=== PATIENT | female | born 1970 | race Caucasian/White ===

== ENCOUNTER 2021-07-18 21:58 | Inpatient (IN) | payer OTHER ==
[2021-07-18] MEDS ORDERED: ACETAMINOPHEN 500 MG TABLET (FP) PO ONE (22:44)
[2021-07-18] MEDS ORDERED: ASPIRIN 81 MG CHEWABLE TABLETS PO ONE (22:44)
[2021-07-18] MEDS ORDERED: ACETAMINOPHEN 500 MG TABLET (FP) ONE (23:09)
[2021-07-18] MEDS ORDERED: ASPIRIN 81 MG CHEWABLE TABLETS ONE (23:11)
[2021-07-18 23:49] LABS: HEMATOCRIT 37.5 % (32.4-45.2); HEMOGLOBIN 12.4 GM/dL (10.7-15.3); MCHC 33.1 g/dl (32.0-36.0); MEAN CELL VOLUME 84.6 fl (80-96); MEAN PLT VOLUME 8.5 fl (7.5-11.1); NEUT % 57.6 % (42.8-82.8); PLATELET COUNT 218 10^3/uL (134-434); RBC 4.44 M/mm3 (3.60-5.2); RDW 14.2 % (11.6-15.6)
[2021-07-18 23:50] LABS: BASO % 0.6 % (0-2.0); LYMPH % 27.5 % (8-40); MONO % 5.3 % (3.8-10.2)
[2021-07-19 00:27] LABS: BLOOD UREA NITROGEN 17.9 mg/dL (7-18); CALCIUM 8.2 mg/dL (8.5-10.1); CHLORIDE 109 mmol/L (98-107); CO2 26 mmol/L (21-32); CREATININE 0.9 mg/dL (0.55-1.3); GLUCOSE,RANDOM 105 mg/dL (74-106); SODIUM 139 mmol/L (136-145); TOT PROT 6.4 g/dl (6.4-8.2)
[2021-07-19 00:28] LABS: ALBUMIN 2.8 g/dl (3.4-5.0); ALK PHOS 87 U/L (45-117); BILIRUBIN,TOTAL 0.4 mg/dL (0.2-1); SGOT/AST 15 U/L (15-37); SGPT/ALT 17 U/L (13-61)
[2021-07-19 00:29] LABS: ANION GAP 4 MMOL/L (8-16)
[2021-07-19] MEDS ORDERED: ENOXAPARIN NA (PORCINE) 100 MG/1 ML DISP.SYRIN SQ ONE ×2 (02:04→02:06)
[2021-07-19 10:17] LABS: PH,URINE 5.5 (5.0-8.0); URINE APPEARANCE CLEAR; URINE BILIRUBIN NEGATIVE (NEGATIVE); URINE COLOR YELLOW; URINE GLUCOSE (UA) NEGATIVE (NEGATIVE); URINE KETONE NEGATIVE (NEGATIVE); URINE LEUK ESTERASE NEGATIVE (NEGATIVE); URINE NITRITE NEGATIVE (NEGATIVE); URINE PROTEIN NEGATIVE (NEGATIVE); URINE UROBILINOGEN 0.2 mg/dL (0.2-1.0)
[2021-07-19 10:19] LABS: BASO % 0.6 % (0-2.0); EOS % 14.8 % (0-4.5); HEMOGLOBIN 13.4 GM/dL (10.7-15.3); LYMPH % 24.1 % (8-40); MCHC 33.4 g/dl (32.0-36.0); MEAN CELL VOLUME 83.7 fl (80-96); MEAN PLT VOLUME 8.3 fl (7.5-11.1); MONO % 5.4 % (3.8-10.2); NEUT % 55.1 % (42.8-82.8); PLATELET COUNT 245 10^3/uL (134-434); RBC 4.78 M/mm3 (3.60-5.2); RDW 14.2 % (11.6-15.6); WHITE BLOOD COUNT 8.4 K/mm3 (4.0-10.0)
[2021-07-19 10:54] LABS: BLOOD UREA NITROGEN 13.3 mg/dL (7-18)
[2021-07-19 10:55] LABS: ALBUMIN 3.2 g/dl (3.4-5.0); CALCIUM 8.8 mg/dL (8.5-10.1)
[2021-07-19 10:56] LABS: MAGNESIUM 1.8 mg/dL (1.8-2.4)
[2021-07-19 10:58] LABS: PHOSPHOROUS 3.1 mg/dL (2.5-4.9)
[2021-07-19 10:59] LABS: CREATININE 0.8 mg/dL (0.55-1.3)
[2021-07-19 11:01] LABS: BILIRUBIN,TOTAL 0.6 mg/dL (0.2-1)
[2021-07-19] MEDS: ENOXAPARIN NA (PORCINE) 100 MG/1 ML DISP.SYRIN SQ SCH ×2 (12:51→21:19)
[2021-07-19 16:58] VITALS: BMI 39.4
[2021-07-19] MEDS ORDERED: ACETAMINOPHEN 325 MG TABLET (FP) PO PRN (20:34)
[2021-07-20 08:23] LABS: BASO % 0.7 % (0-2.0); EOS % 15.9 % (0-4.5); HEMATOCRIT 39.1 % (32.4-45.2); HEMOGLOBIN 13.1 GM/dL (10.7-15.3); LYMPH % 32.8 % (8-40); MCH 28.2 pg (25.7-33.7); MCHC 33.5 g/dl (32.0-36.0); MEAN CELL VOLUME 84.2 fl (80-96); MONO % 7.7 % (3.8-10.2); NEUT % 42.9 % (42.8-82.8); PLATELET COUNT 230 10^3/uL (134-434); RBC 4.64 M/mm3 (3.60-5.2); RDW 14.5 % (11.6-15.6); WHITE BLOOD COUNT 6.7 K/mm3 (4.0-10.0)
[2021-07-20 08:45] LABS: ALBUMIN 2.7 g/dl (3.4-5.0); CALCIUM 8.3 mg/dL (8.5-10.1)
[2021-07-20 08:49] LABS: CREATININE 0.8 mg/dL (0.55-1.3)
[2021-07-20 08:50] LABS: BILIRUBIN,TOTAL 0.4 mg/dL (0.2-1); TOT PROT 6.3 g/dl (6.4-8.2)
[2021-07-20] MEDS: ENOXAPARIN NA (PORCINE) 100 MG/1 ML DISP.SYRIN SQ SCH (09:41)
[2021-07-20 14:41] VITALS: BP 118/67; PULSE 76; TEMP 98.3
== END 2021-07-20 17:28 | disposition home or self-care (01) | DRG 176 ==
LOC: JER 21:58 → JERBED 07-19 02:04 → OBSVTOIN 07-19 04:51 → J6S 07-19 10:59
PROVIDERS: ADMIT Internal Medicine
DX: I26.99 Other pulmonary embolism without acute cor pulmonale (principal); E66.9 Obesity, unspecified; Z68.39 Body mass index [BMI] 39.0-39.9, adult
CPT/HCPCS: 36415; 71046-TC-FY; 71275-TC; 80053; 81003; 83735; 84100; 84443; 84484; 85025; 85379; 87804; 93005; 93010; 93306-TC; 93970-TC; 99285-25; C9803; G0378; Q9967; U0003; U0005